=== PATIENT | female | born 1930 | race African-American/Black ===

== ENCOUNTER 2017-08-06 12:39 | Emergency (ER) | payer MEDICARE, OTHER ==
[~2017-08-06] VITALS: Ht 170.2 cm; Wt 78.4 kg
[2017-08-06 12:45] VITALS: TEMP 36.7; Ht 170.2 cm; Wt 78.4 kg
--- NOTE | 2017-08-06 13:09 | EMERGENCY ROOM VISIT NOTE ---
History Report prepared by Gilbert: Selene Knight Under the Supervision of: Dr. Gerson Suraez M.D. First contact with patient: 12:45 Chief Complaint: FALL Stated Complaint: FALL History of Present Illness The patient is a 87 year old female who presents to the Emergency Room with complaints of an episode of a fall occurring [employer]. She is in the area visiting her family. She turned to go up the stairs today and missed the first step. This caused her to fall into the stairs. She denies falling down the stairs. She hit her head when she fell but denies any LOC. The patient is currently complaining of a headache and neck pain. She rates her pain as an 8/10 in severity. Movement exacerbates her pain while laying still helps to alleviate it. She does not feel dizzy at this time. She reports that she has been intermittently dizzy throughout the week. She did not feel dizzy before she fell. The patient denies visual changes, dental pain, chest pain, shortness of breath, shoulder pain, abdominal pain, and numbness or weakness. She reports chronic back pain but denies any new back pain. She has a history of DM and her BSG has been WNL. She denies any significant cardiac history. She does not take any blood thinners. Source of History: patient Onset: [employer] Position: other (global) Symptom Intensity: 8/10 Timing: other (episode) Modifying Factors (Worsening): movement Modifying Factors (Relieving): other (remaining still) Associated Symptoms: + headache, + neck pain, No LOC, No chest pain, No SOB , No abdominal pain, No back pain, No weakness, No numbness Note: Pt denies dizziness, visual changes, dental pain, and shoulder pain. Review of Systems See HPI for pertinent positives & negatives. A total of 10 systems reviewed and were otherwise negative. Past Medical & Surgical Medical Problems: (1) Arthritis (2) Diabetes mellitus (3) HTN (hypertension) (4) Restless leg syndrome Old medical records were attempted to be reviewed but there are no old records at this hospital. Nurse's notes were reviewed and I agree with. Denies that she is on any blood thinners Family History Non-pertinent due to advanced age. Social History Smoking Status: Never Smoker Current/Historical Medications Scheduled Carvedilol (Coreg), 25 MG PO BID Cholecalciferol (Vitamin D), 1 CAP PO DAILY Coenzyme Q10 (Ubidecarenone) (Coq10), 200 MG PO DAILY Cyanocobalamin (Vitamin B-12), 1 CAP PO DAILY Folic Acid (Folic Acid), 1 MG PO DAILY Furosemide (Lasix), 40 MG PO DAILY Losartan Potassium (Losartan Potassium), 25 MG PO DAILY Meloxicam (Mobic), 7.5 MG PO BID Methotrexate (Methotrexate), 15 MG PO WK Multivitamin (Multivitamin), 1 TAB PO DAILY Probiotic Product (Probiotic), 1 CAP PO DAILY Simvastatin (Zocor), 40 MG PO QPM Allergies Coded Allergies: No Known Allergies (Unverified , 08/06/17) Physical Exam Vital Signs Date Time Temp Pulse Resp B/P (MAP) Pulse Ox O2 Delivery O2 Flow Rate FiO2 08/06/17 14:56 62 16 203/84 98 08/06/17 13:19 72 16 184/109 97 Room Air 08/06/17 12:45 36.7 65 18 226/93 100 Room Air Physical Exam General: Non-ill appearing older female in no acute distress, appears younger than stated age. HEENT: Normal cephalic. GCS 15. Small hematoma on the left forehead. Pupils are equal round and reactive to light. Extraocular movements are intact. Oropharynx is pink with moist mucous membranes. No swelling of the mouth lips or tongue. Neck: Collared with a midline trachea. No meningeal signs or stiffness, no JVD or bruits. No Stridor. Chest: Clear to auscultation bilaterally. No wheezes or rhonchi. No increased work of breathing. Heart: regular rate and rhythm. Abdomen: Soft nontender, nondistended without rebound guarding or rigidity. Extremities: Chronic trace to 1+ lower extremity edema which she says is unchanged. No cyanosis or clubbing . No calf tenderness or assymetry Spine/Back. Non tender to palpation. No CVA tenderness Skin: Good turgor without rashes. Neurologic exam: Cranial nerves two through 12 are intact. Motor and sensation are intact and symmetrical throughout. Medical Decision & Procedures ER Provider Diagnostic Interpretation: Radiology results as stated below per my review and radiologist interpretation: CT HEAD WITHOUT CONTRAST (CT) CLINICAL HISTORY: Head pain status post trauma. Scalp hematoma. COMPARISON STUDY: No previous studies for comparison. TECHNIQUE: Axial CT of the brain is performed from the vertex to the skull base. IV contrast was not administered for this examination. A dose lowering technique was utilized adhering to the principles of ALARA. CT DOSE: FINDINGS: No intra or extra-axial mass lesions are visualized. There is no CT evidence of acute cortical infarction. There is no evidence of midline shift. There is no acute hemorrhage. No calvarial fractures are visualized. There are minor white matter hypodensities likely on a small vessel basis. There is no evidence of pathologic ventricular dilatation. There is no evidence of acute sinusitis. There is left frontal scalp edema. IMPRESSION: 1. Left frontal scalp edema 2. No acute intracranial findings. Electronically signed by: Michael Adler M.D. 08/06/2017 1:51 PM Dictated Date/Time: 08/06/2017 1:[address] OF THE CERVICAL SPINE CLINICAL HISTORY: Neck pain status post trauma COMPARISON STUDY: No previous studies for comparison. CT DOSE: 954.48 mGy.cm TECHNIQUE: CT scan of the cervical spine was performed from the skull base to the thoracic inlet. Images are reviewed in the axial, sagittal, and coronal planes. IV contrast was not administered for this examination. A dose lowering technique was utilized adhering to the principles of ALARA. FINDINGS: There is a multinodular thyroid gland. There is no pneumothorax. 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 There is marked tortuosity of the right innominate artery which courses anterior to the trachea at the T2 level. The prevertebral soft tissues are normal. No fractures or subluxations are visualized. There are multilevel degenerative changes IMPRESSION: 1. No acute fractures or traumatic subluxations 2. Multilevel degenerative change 3. Multinodular thyroid 4. Marked tortuosity of the right innominate artery which courses into the trachea the T2 level. 5. Focal tracheal narrowing at the T1 and T2 levels. Electronically signed by: Michael Adler M.D. 08/06/2017 1:56 PM Dictated Date/Time: 08/06/2017 1:52 PM Laboratory Results 08/06/17 13:04 Red Blood Count 3.44, Mean Corpuscular Volume 86.3, Mean Corpuscular Hemoglobin 26.7, Mean Corpuscular Hemoglobin Concent 31.0, Mean Platelet Volume 9.9, Neutrophils (%) (Auto) 45.4, Lymphocytes (%) (Auto) 43.2, Monocytes (%) (Auto) 7.8, Eosinophils (%) (Auto) 3.0, Basophils (%) (Auto) 0.3, Neutrophils # (Auto) 1.68, Lymphocytes # (Auto) 1.60, Monocytes # (Auto) 0.29, Eosinophils # (Auto) 0.11, Basophils # (Auto) 0.01 08/06/17 13:04 Test 08/06/17 13:04 White Blood Count 3.70 K/uL (4.8-10.8) Red Blood Count 3.44 M/uL (4.2-5.4) Hemoglobin 9.2 g/dL (12.0-16.0) Hematocrit 29.7 % (37-47) Mean Corpuscular Volume 86.3 fL (80-100) Mean Corpuscular Hemoglobin 26.7 pg (25-34) Mean Corpuscular Hemoglobin Concent 31.0 g/dl (32-36) Platelet Count 174 K/uL (130-400) Mean Platelet Volume 9.9 fL (7.4-10.4) Neutrophils (%) (Auto) 45.4 % Lymphocytes (%) (Auto) 43.2 % Monocytes (%) (Auto) 7.8 % Eosinophils (%) (Auto) 3.0 % Basophils (%) (Auto) 0.3 % Neutrophils # (Auto) 1.68 K/uL (1.4-6.5) Lymphocytes # (Auto) 1.60 K/uL (1.2-3.4) Monocytes # (Auto) 0.29 K/uL (0.11-0.59) Eosinophils # (Auto) 0.11 K/uL (0-0.5) Basophils # (Auto) 0.01 K/uL (0-0.2) RDW Standard Deviation 53.3 fL (36.4-46.3) RDW Coefficient of Variation 17.0 % (11.5-14.5) Immature Granulocyte % (Auto) 0.3 % Immature Granulocyte # (Auto) 0.01 K/uL (0.00-0.02) Anion Gap 3.0 mmol/L (3-11) Est Creatinine Clear Calc Drug Dose 43.2 ml/min Estimated GFR () 60.4 Estimated GFR (Non- 52.1 BUN/Creatinine Ratio 21.5 (10-20) Calcium Level 9.3 mg/dl (8.5-10.1) Total Bilirubin 0.2 mg/dl (0.2-1) Direct Bilirubin < 0.1 mg/dl (0-0.2) Aspartate Amino Transf (AST/SGOT) 13 U/L (15-37) Alanine Aminotransferase (ALT/SGPT) 19 U/L (12-78) Alkaline Phosphatase 45 U/L (45-117) Total Protein 7.0 gm/dl (6.4-8.2) Albumin 3.8 gm/dl (3.4-5.0) Lipase 200 U/L (73-393) Laboratory studies as stated above per my review. ECG Indication: other Rate (beats per minute): 62 Rhythm: normal sinus Findings: nonspecific-ST abn, no acute ischemic change, other (poor baseline, LVH) Comparison ECG Date: no prior available ED Course 1245: Past medical records reviewed. The patient was evaluated in room B6, and a complete history and physical examination were performed. 1426: I reevaluated the patient and removed her cervical collar. She is now resting more comfortably. 1443: Upon reevaluation, the patient is feeling better. I discussed the results and treatment plan with the patient and her family. They verbalized agreement of the treatment plan. The patient was discharged home. Medical Decision Differential diagnoses includes trauma, intracranial hemorrhage, electrolyte or metabolic abnormality, arrhythmia, orthopedic injury. This patient comes in as described above. She suffered what sounds like a mechanical fall and hit her head and now has a bruise on her left forehead as well as some neck pain. She is wearing a cervical collar when I examine her. She denies any other complaints. She had no chest pain, shortness of breath or syncope. She is a diabetic and has high blood pressure as well. EKG does not suggest any significant arrhythmia or cardiac disease. IV access established blood work was obtained a CAT scan of her head and neck. She was reassessed frequently frequently. Nothing to suggest arrhythmia. She has baseline anemia. She has nothing to suggest acute diabetic emergency. CAT scan of the head and neck did not show any acute traumatic findings. 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 We did give her copies of her reports that she follow up with her regular doctor when she gets back to [place]. This does not seem to given an acute problems but she should need follow-up. She was given a soft cervical collar as she requested it for pain management she seemed to do well with that she is ambulate without difficulties. She should be careful getting up and down. She can use over-the- counter NSAIDs or Tylenol needed for pain and return if: Increasing pain, worsening of symptoms, fever chills, any new problems or concerns. Medication Reconcilliation Current Medication List: was personally reviewed by me Blood Pressure Screening Patient's blood pressure: Elevated blood pressure Blood pressure disposition: Referred to PCP Impression Primary Impression: Concussion Additional Impressions: Scalp hematoma Cervical strain Scribe Attestation The scribe's documentation has been prepared under my direction and personally reviewed by me in its entirety. I confirm that the note above accurately reflects all work, treatment, procedures, and medical decision making performed by me. Departure Information Dispostion Home / Self-Care Referrals No Doctor, Assigned (PCP) Forms HOME CARE DOCUMENTATION FORM, IMPORTANT VISIT INFORMATION Patient Instructions My [facility] Additional Instructions Rest. Be careful when getting up and down. May use [id number] pain medication if needed Ice intermittently Return if: Worsening of symptoms, headache, chest pain, any new problems or concerns Follow-up with your doctor when you get home for recheck Problem Qualifiers
[2017-08-06 13:16] LABS: BASO % 0.3 %; BASO ABS # 0.01 K/uL (0-0.2); COMPLETE YES; HEMATOCRIT 29.7 % (37-47); IG% 0.3 %; LYMPH % 43.2 %; MEAN CELL VOLUME 86.3 fL (80-100); MEAN CORPUSCULAR HEMOGLOBIN 26.7 pg (25-34); MEAN PLATELET VOLUME 9.9 fL (7.4-10.4); MONO % 7.8 %; NEUT % 45.4 %; PLATELET COUNT 174 K/uL (130-400); RED BLOOD COUNT 3.44 M/uL (4.2-5.4)
[2017-08-06] MEDS ORDERED: MELO7.5T5 PO (13:20)
[2017-08-06] MEDS ORDERED: CZR50 PO (13:20)
[2017-08-06] MEDS ORDERED: COEN1CAP7 PO (13:20)
[2017-08-06] MEDS ORDERED: FLV1 PO (13:20)
[2017-08-06] MEDS ORDERED: CARV25TA2 PO (13:20)
[2017-08-06] MEDS ORDERED: FRS/40 PO (13:20)
[2017-08-06] MEDS ORDERED: SIMV40TA2 PO (13:20)
[2017-08-06] MEDS ORDERED: CYAN500T PO (13:20)
[2017-08-06] MEDS ORDERED: MULT-506 PO (13:20)
[2017-08-06] MEDS ORDERED: METH2.5T PO (13:20)
[2017-08-06] MEDS ORDERED: MISCCAP80 PO (13:20)
[2017-08-06] MEDS ORDERED: CHOL100010 PO (13:20)
[2017-08-06 13:38] LABS: ALT/SGPT 19 U/L (12-78); BLOOD UREA NITROGEN 21 mg/dl (7-18); BUN/CREATININE RATIO 21.5 (10-20); CALCIUM 9.3 mg/dl (8.5-10.1); CARBON DIOXIDE 32 mmol/L (21-32); CHLORIDE 105 mmol/L (98-107); CREATININE 0.97 mg/dl (0.60-1.20); GLUCOSE 96 mg/dl (70-99); POTASSIUM 4.3 mmol/L (3.5-5.1); SODIUM 140 mmol/L (136-145)
[2017-08-06 13:41] LABS: ALKALINE PHOSPHATASE 45 U/L (45-117); AST/SGOT 13 U/L (15-37)
--- NOTE | 2017-08-06 13:52 | DIAGNOSTIC IMAGING REPORT ---
CT HEAD WITHOUT CONTRAST (CT) CLINICAL HISTORY: Head pain status post trauma. Scalp hematoma. COMPARISON STUDY: No previous studies for comparison. TECHNIQUE: Axial CT of the brain is performed from the vertex to the skull base. IV contrast was not administered for this examination. A dose lowering technique was utilized adhering to the principles of ALARA. CT DOSE: FINDINGS: No intra or extra-axial mass lesions are visualized. There is no CT evidence of acute cortical infarction. There is no evidence of midline shift. There is no acute hemorrhage. No calvarial fractures are visualized. There are minor white matter hypodensities likely on a small vessel basis. There is no evidence of pathologic ventricular dilatation. There is no evidence of acute sinusitis. There is left frontal scalp edema. IMPRESSION: 1. Left frontal scalp edema 2. No acute intracranial findings. Electronically signed by: Michael Adler M.D. 08/06/2017 1:51 PM Dictated Date/Time: 08/06/2017 1:50 PM
--- NOTE | 2017-08-06 13:57 | DIAGNOSTIC IMAGING REPORT ---
CT OF THE CERVICAL SPINE CLINICAL HISTORY: Neck pain status post trauma COMPARISON STUDY: No previous studies for comparison. CT DOSE: 954.48 mGy.cm TECHNIQUE: CT scan of the cervical spine was performed from the skull base to the thoracic inlet. Images are reviewed in the axial, sagittal, and coronal planes. IV contrast was not administered for this examination. A dose lowering technique was utilized adhering to the principles of ALARA. FINDINGS: There is a multinodular thyroid gland. There is no pneumothorax. 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 There is marked tortuosity of the right innominate artery which courses anterior to the trachea at the T2 level. The prevertebral soft tissues are normal. No fractures or subluxations are visualized. There are multilevel degenerative changes IMPRESSION: 1. No acute fractures or traumatic subluxations 2. Multilevel degenerative change 3. Multinodular thyroid 4. Marked tortuosity of the right innominate artery which courses into the trachea the T2 level. 5. Focal tracheal narrowing at the T1 and T2 levels. Electronically signed by: Michael Adler M.D. 08/06/2017 1:56 PM Dictated Date/Time: 08/06/2017 1:52 PM
[2017-08-06 14:56] VITALS: BP 203/84; PULSE 62; O2SAT 98
== END 2017-08-06 14:53 | disposition home or self-care (01) ==
LOC: C.EDB 12:42
DX: S06.0X0A Concussion without loss of consciousness, initial encounter (principal); S00.83XA Contusion of other part of head, initial encounter; S16.1XXA Strain of muscle, fascia and tendon at neck level, initial encounter; W18.30XA Fall on same level, unspecified, initial encounter; M54.9 Dorsalgia, unspecified; G89.29 Other chronic pain; E11.9 Type 2 diabetes mellitus without complications; I10 Essential (primary) hypertension; M19.90 Unspecified osteoarthritis, unspecified site; G25.81 Restless legs syndrome; J39.8 Other specified diseases of upper respiratory tract